=== PATIENT | female | born 1955 | race Caucasian/White ===

== ENCOUNTER 2017-09-29 11:11 | Outpatient (CLI) | payer OTHER ==
--- NOTE | 2017-09-29 11:50 | RAD ---
LEFT KNEE 4 VIEWS: Date: 09/29/17 HISTORY: Knee strain. FINDINGS: There are some mild arthritic changes of the knee. There is some minimal spur formation and minimal m edial compartment narrowing. There is no joint effusion or fracture. IMPRESSION: Minimal arthritic changes of the knee. POS: [facility]
--- NOTE | 2017-09-29 12:12 | MMO ---
BILATERAL SCREENING MAMMOGRAM: DATE: 09/29/17 HISTORY: 62-year-old female for screening mammography. COMPARISON: None available. FINDINGS: Bilateral MLO and CC views of the breasts show scattered fibroglandular breast tissue. There is no ev idence of suspicious mass, suspicious cluster of microcalcifications, or area of architectural distor tion. Interpretation of this mammogram was performed with the assistance of computer-aided detection. IMPRESSION: BIRADS 1: Negative Annual screening mammography is recommended. POS: [facility]
== END 2017-09-29 11:12 | disposition home or self-care (01) ==
LOC: SCSMAMMO 11:11
PROVIDERS: ATTEND Family Medicine
DX: Z12.31 Encounter for screening mammogram for malignant neoplasm of breast (principal); M25.562 Pain in left knee; M17.12 Unilateral primary osteoarthritis, left knee
CPT/HCPCS: 77067